=== PATIENT | male | born 1930 | race Two or more races ===

== ENCOUNTER 2017-03-26 22:29 | Inpatient (IN) | payer MEDICARE, OTHER ==
[~2017-03-26] VITALS: Ht 167.6 cm; Wt 61.7 kg
[~2017-03-26 22:29] MED LIST: DOCU-106 PO; FOLI1TAB16 PO; OLME20TA21 PO; QUET100T PO; TAMS0.4C34 PO; TRAM50TA2 PO
--- NOTE | 2017-03-26 22:39 | NUR ---
PT TO ER BED 6. PT BIBRA FROM SNF C/O GLF UNWITNESSED WITH HEMATOMA OVER RIGHT EYE WITH LACERATION. PT PLACED ON LEAD DEVELOPER. VSS/RESP EVEN UNLABORED/NAD NOTED/SKIN WARM AND DRY/DENIES N-V-D/AOX1. AWAITING MD KATZ.
[2017-03-26] MEDS ORDERED: LIDOCAINE 2% JEL UROJET 10 ML MM ONE ×2 (22:54→23:00)
--- NOTE | 2017-03-26 22:55 | NUR ---
20G IV TO R FA X 1 ATTEMPT USING ASEPTIC TECH, BLOOD HANDED OVER TO LAB AT BEDSIDE. IV FLUSHES EASILY WITH NS.
--- NOTE | 2017-03-26 23:00 | NUR ---
15 FR IN AND OUT CATH INSERTED USING MANAGER CORE, 100 ML CLEAR, YELLOW URINE OBTAINED. SPECIMEN SENT HANDED OVER TO LAB AT BEDSIDE.
--- NOTE | 2017-03-26 23:11 | NUR ---
EMT AT BEDSIDE FOR EKG.
[2017-03-26 23:13] LABS: BASOPHILS # (AUTO) 0.1 /CMM (0.0-0.2); BASOPHILS % (AUTO) 0.6 % (0.0-2.0); EOSINOPHILS % (AUTO) 0.4 % (0.0-6.0); HEMATOCRIT 31 % (39-51); HEMOGLOBIN 10.6 g/dL (13.5-17.5); LYMPHOCYTES # (AUTO) 0.6 /CMM (0.8-4.8); LYMPHOCYTES % (AUTO) 5.7 % (20.0-44.0); MEAN CORPUSCULAR HEMOGLOBIN 30 PG (26.0-33.0); MEAN CORPUSCULAR HGB CONC 34 g/dl (31.0-36.0); MEAN CORPUSCULAR VOLUME 89 fL (80-96); MONOCYTES # (AUTO) 0.9 /CMM (0.1-1.30); MONOCYTES % (AUTO) 8.3 % (2.0-12.0); NEUTROPHILS # (AUTO) 9.2 /CMM (1.8-8.9); PLATELET COUNT (AUTO) 133 /CMM (150-450); RDW COEFFICIENT OF VARIATION 15.9 (11.5-15.0); RED BLOOD CELL COUNT(AUTO) 3.49 MIL/uL (4.5-6.0); WHITE BLOOD COUNT (AUTO) 10.8 K/uL (4.3-11.0)
[2017-03-26] MEDS: IV NS 0.9% 500 ML BAG IV ONE (23:16)
[2017-03-26 23:19] LABS: APPEARANCE,URINE SL CLOUDY (CLEAR); BILIRUBIN,URINE NEGATIVE (NEGATIVE); BLOOD, URINE TRACE Ery/uL (NEGATIVE); COLOR,URINE YELLOW (YELLOW); KETONES,URINE 1+ (NEGATIVE); LEUKOCYTE ESTERASE ,URINE 2+ (NEGATIVE); NITRITE, URINE NEGATIVE (NEGATIVE); PROTEIN,URINE 1+ mg/dl (NEGATIVE); UGLUCOSE NEGATIVE (NEGATIVE); UROBILINOGEN,URINE 0.2 EU/dL (0.2)
--- NOTE | 2017-03-26 23:25 | NUR ---
PT TO CT VIA STRETCHER. VSS.
[2017-03-26 23:26] LABS: CARBON DIOXIDE 25 mmol/L (21-32); CHLORIDE 101 mmol/L (98-107); CREATININE 0.9 mg/dL (0.6-1.3); GLUCOSE 144 mg/dL (74-106); INR 1.02 (0.87-1.13); SODIUM SERUM 136 mmol/L (136-145); UREA NITROGEN, BLOOD 20 mg/dL (7-18)
[2017-03-26 23:30] LABS: BACTERIA,URINE Few /HPF (None Seen); SQUAMOUS EPITHELIAL CELL,UR Few /HPF (None Seen); WBC,URINE 51-80 /HPF (0-3)
[2017-03-26 23:37] LABS: ALANINE AMINOTRANSFERASE 7 U/L (12-78); ALBUMIN 3.4 g/dL (3.4-5.0); ALKALINE PHOSPHATASE 73 U/L (46-116); ASPARTATE AMINOTRANSFERASE 18 U/L (15-37); BILIRUBIN,TOTAL 0.6 mg/dL (0.2-1.0); TOTAL PROTEIN, SERUM 8.1 g/dL (6.4-8.2); TROPONIN I < 0.017 ng/mL (0.00-0.056)
--- NOTE | 2017-03-26 23:40 | NUR ---
PT BACK FROM CT.
[2017-03-26] MEDS ORDERED: CEFTRIAXONE 1 G VIAL ONE (23:42)
[2017-03-27] MEDS ORDERED: TAMS0.4C34 PO
[2017-03-27] MEDS ORDERED: CARB-94 PO
[2017-03-27] MEDS ORDERED: PRAV20TA PO
[2017-03-27] MEDS ORDERED: ASPI-1169 PO
[2017-03-27] MEDS ORDERED: MIRT15TA PO
[2017-03-27] MEDS ORDERED: ACET325T53 PO
[2017-03-27] MEDS ORDERED: IV NS 0.9% 1,000 ML BAG IV ONE
[2017-03-27] MEDS ORDERED: NA P133E RC
[2017-03-27] MEDS ORDERED: BISA10SU61 RC
[2017-03-27] MEDS ORDERED: CEFTRIAXONE 1 G in IV D5W 50 ML IV ONE ×2
[2017-03-27] MEDS ORDERED: DIVA500T2 PO
[2017-03-27] MEDS ORDERED: METO-356 PO
[2017-03-27] MEDS ORDERED: LISI10TA5 PO
[2017-03-27] MEDS ORDERED: MAGN2400 PO
--- NOTE | 2017-03-27 00:41 | NUR ---
PT GOING TO TELE 326.
[2017-03-27 00:53] LABS: BILIRUBIN,DIRECT 0.1 mg/dL (0.0-0.2)
--- NOTE | 2017-03-27 01:11 | NUR ---
REPORT CALLED TO LIGIA SALAMANCA FOR BRIA.
[2017-03-27] MEDS: IV NS 0.9% 500 ML BAG IV ONE (01:15)
[2017-03-27 01:30] VITALS: BP 150/82
[2017-03-27] MEDS ORDERED: IV NS 0.9% 1,000 ML BAG IV PRN ×2 (01:30→02:30)
[2017-03-27] MEDS ORDERED: ENOXAPARIN SODIUM 30 MG/0.3 ML DISP.SYRIN SQ SCH (01:30)
--- NOTE | 2017-03-27 01:30 | NUR ---
REMOTE CODERS OPENING NOTES ADMITTED PT AWAKE, ON ROOM AIR, RESPIRATIONS EVEN, UNLABORED, NO SOB NOTED. NO S/SX OF PAIN OR DISCOMFORT NOTED.S/P GROUND LEVEL FALL NOTED WITH LACERATION OF THE RT EYEBROW, NO BLEEDING AT THIS TIME, NOTED WITH RT FOREHEAD HEMATOMA.IV SITE RT FA INTACT ON NS AT 75 ML/HR. CALL LIGHT WITHIN REACH, BED LOCKED IN LOWEST POSITION.KEPT CLEAN AND COMFORTABLE.ATTENDED ALL NEEDS.WILL CONTINUE TO MONITOR ACCORDINGLY.
--- NOTE | 2017-03-27 01:32 | NUR ---
PT TRANSPORTED TO [facility] 326-1 VIA STRETCHER ON KAYAKING INSTRUCTOR WITH RN, ACLS PROTOCOL.
[2017-03-27] MEDS ORDERED: ENOXAPARIN SODIUM 30 MG/0.3 ML DISP.SYRIN ONE (01:56)
[2017-03-27 02:00] VITALS: BP 150/82
[2017-03-27 04:00] VITALS: BP 124/60
--- NOTE | 2017-03-27 06:31 | NUR ---
RAILROAD WATCHMAN NOTES PT IN BED,RESTING COMFORTABLY ON ROOM AIR, RESPIRATIONS EVEN, UNLABORED, NO SOB NOTED. NO S/SX OF PAIN OR DISCOMFORT NOTED. IV SITE INTACT, PATENT,.CALL LIGHT WITHIN REACH. KEPT CLEAN AND COMFORTABLE,ATTENDED ALL NEEDS.WILL CONTINUE TO MONITOR ACCORDINGLY
[2017-03-27 06:40] LABS: BASOPHILS % (AUTO) 0.4 % (0.0-2.0); EOSINOPHILS # (AUTO) 0.1 /CMM (0.0-0.7); EOSINOPHILS % (AUTO) 0.9 % (0.0-6.0); HEMATOCRIT 28 % (39-51); HEMOGLOBIN 9.5 g/dL (13.5-17.5); LYMPHOCYTES # (AUTO) 1.4 /CMM (0.8-4.8); LYMPHOCYTES % (AUTO) 17.7 % (20.0-44.0); MEAN CORPUSCULAR HEMOGLOBIN 31 PG (26.0-33.0); MEAN CORPUSCULAR HGB CONC 35 g/dl (31.0-36.0); MEAN CORPUSCULAR VOLUME 89 fL (80-96); MONOCYTES # (AUTO) 0.7 /CMM (0.1-1.30); MONOCYTES % (AUTO) 8.8 % (2.0-12.0); NEUTROPHILS # (AUTO) 5.6 /CMM (1.8-8.9); NEUTROPHILS % (AUTO) 72.2 % (43.0-81.0); PLATELET COUNT (AUTO) 124 /CMM (150-450); RDW COEFFICIENT OF VARIATION 15.6 (11.5-15.0); RED BLOOD CELL COUNT(AUTO) 3.09 MIL/uL (4.5-6.0); WHITE BLOOD COUNT (AUTO) 7.7 K/uL (4.3-11.0)
--- NOTE | 2017-03-27 07:10 | NUR ---
RN NOTES PT IS LAYING DOWN IN BED SLEEPING, NO SIGNS OF DISTRESS NOTED. PT ON RA, RESPIRATIONS ARE EVEN AND UNLABORED. IV ON RFA INTACT AND RUNNING NS @ 75ML/HR. SAFETY MEASURES ARE IN PLACE, CALL LIGHT IS IN REACH. WILL CONTINUE TO MONITOR.
[2017-03-27 07:17] LABS: CALCIUM, SERUM 8.3 mg/dL (8.5-10.1); CARBON DIOXIDE 24 mmol/L (21-32); CHLORIDE 106 mmol/L (98-107); CREATININE 0.7 mg/dL (0.6-1.3); GLUCOSE 103 mg/dL (74-106); POTASSIUM 4.1 mmol/L (3.5-5.1); SODIUM SERUM 139 mmol/L (136-145); UREA NITROGEN, BLOOD 15 mg/dL (7-18)
[2017-03-27 08:00] VITALS: BP 154/87
[2017-03-27] MEDS ORDERED: NA PHOS,M-B/NA PHOS,DI-BA 1 EA ENEMA RC PRN (08:00)
[2017-03-27] MEDS ORDERED: BISACODYL SUPP (10 MG) 10 MG/SUPP.RECT SUPP.RECT RC PRN (08:00)
[2017-03-27] MEDS ORDERED: ACETAMINOPHEN 325 MG TABLET PO PRN (08:00)
[2017-03-27] MEDS ORDERED: MAGNESIUM HYDROXIDE 30 ML UDC PO PRN (08:30)
[2017-03-27] MEDS: ASPIRIN 81 MG TAB.CHEW PO SCH (08:38)
[2017-03-27] MEDS: CARBIDOPA/LEVODOPA 25/250 MG 1 UDTAB PO SCH ×5 (08:38→21:00)
[2017-03-27] MEDS: TRAMADOL HCL 50 MG TABLET PO SCH (08:38)
[2017-03-27] MEDS: METOPROLOL SUCCINATE 25 MG TAB.SR.24H PO SCH (08:39)
[2017-03-27] MEDS: DIVALPROEX SODIUM 500 MG TABLET.DR PO SCH ×3 (12:23→21:00)
[2017-03-27 16:00] VITALS: BP 140/56
[2017-03-27] MEDS: IV NS 0.9% 1,000 ML IV PRN (16:22)
--- NOTE | 2017-03-27 18:26 | NUR ---
RN NOTES PT IS RESTING IN BED COMFORTABLY. PT ON RA, RESPIRATIONS ARE EVEN AND UNLABORED. IV ON RFA INTACT AND RUNNING NS @ 75ML/HR. ALL MEDS WERE GIVEN ORDERED AND PT NEEDS MET. DRESSING KEPT CLEAN AND DRY ON FOREHEAD. SAFETY MEASURES ARE IN PLACE, CALL LIGHT IS IN REACH. WILL ENDORSE TO SPECIFICATION CONSULTANT RN FOR CONTINUITY OF CARE.
--- NOTE | 2017-03-27 18:28 | NUR ---
RN NOTES PT HAD ONE EPISODE OF EMESIS. NAUSEA HAS SUBSIDED, WILL CONTINUE TO MONITOR.
--- NOTE | 2017-03-27 19:30 | NUR ---
RN OPENING NOTES PT RESTING IN BED. PT CONFUSED. IRISH SPEAKER. NO S/S OF PAIN, DISTRESS, OR SOB AT THIS TIME. PT HAS A RIGHT FOREARM IV #20 RUNNING NS @ 75ML/HR. SAFETY PRECAUTIONS IN PLACE. BED IN LOW, LOCKED POSITION, X3 SIDERAILS UP, AND CALL LIGHT WITHIN REACH. WILL CONTINUE TO MONITOR.
[2017-03-27 20:00] VITALS: BP 106/84
[2017-03-27] MEDS: ENOXAPARIN SODIUM 30 MG/0.3 ML DISP.SYRIN SQ SCH (20:20)
--- NOTE | 2017-03-27 20:45 | NUR ---
RN NOTES PT HAS BECOME AGITATED, PREVIOUS ATTEMPTS TO REDIRECT THE PT HAS BECOME UNSUCCESSFUL. LIGIA PENA ASSISTED WITH CALLING THE OFFICE OF DR VELIZ. DR VELIZ'S AIR DEFENSE CONTROL OFFICER DR MENENDEZ ORDERED PRN ATIVAN 0.5 MG Q4HR. WILL ADMINISTER.
[2017-03-27] MEDS ORDERED: LORAZEPAM INJ 2 MG/ML VIAL IV PRN (21:00)
--- NOTE | 2017-03-27 21:35 | NUR ---
RN NOTES ATIVAN 0.5MG HAS NOT BEEN EFFECTIVE. PER DR MENENDEZ ORDER FOR BILATERAL SOFT WRIST RESTRAINTS. WILL CONTINUE TO MONITOR PT.
[2017-03-27] MEDS: MIRTAZAPINE 15 MG TABLET PO SCH (22:00)
[2017-03-27] MEDS: TAMSULOSIN 0.4 MG CAP.SR.24H PO SCH (22:00)
[2017-03-27] MEDS ORDERED: PRAVASTATIN SODIUM 20 MG TABLET PO SCH (22:00)
[2017-03-27] MEDS: ATORVASTATIN 10 MG TABLET PO SCH (22:00)
[2017-03-27] MEDS: LISINOPRIL (10MG) 10 MG TABLET PO SCH (22:00)
--- NOTE | 2017-03-27 22:55 | NUR ---
RN NOTES PT REFUSED ALL PO MEDICATIONS. THE MEDICATIONS ABLE TO BE CRUSHED WERE ATTEMPTED TO BE GIVEN WITH APPLESAUCE. PT SPIT OUT MEDICATIONS AND APPLESAUCE. MULTIPLE ATTEMPTS MADE AND PT REFUSED EACH TIME. WILL CONTINUE TO MONITOR.
[2017-03-28] MEDS: DIVALPROEX SODIUM 500 MG TABLET.DR PO SCH ×3 (05:00→21:32)
--- NOTE | 2017-03-28 06:33 | NUR ---
RN CLOSING NOTES PT RESTING IN BED. PT CONFUSED OMANI SPEAKER. NO APPARENT S/S OF PAIN, DISTRESS OR SOB NOTED. PT HAS A RFA #20 IV RUNNING NS @75ML/HR, PT TOLERATING WELL. OVER NIGHT THE PATIENT HAS CONTINUED TO BE COMBATIVE AND UNABLE TO TAKE PO MEDICATION. PT HAS BILATERAL SOFT WRIST RESTRAINTS. SAFETY PRECAUTIONS IN PLACE. BED IN LOW LOCKED POSITION, X3SIDE RAILS UP. WILL ENDORSE TO DAY SHIFT NURSE FOR CONTINUITY OF CARE.
--- NOTE | 2017-03-28 07:30 | NUR ---
RN NOTES PT IS LAYING DOWN IN BED, RESTING COMFORTABLY. PT ON RA, RESPIRATIONS ARE EVEN UNLABORED. IV ON RFA INTACT AND RUNNING NS @ 75ML/HR. SOFT WRIST RESTRAINTS ARE ON, NO SKIN IRRITATION NOTED. SAFETY MEASURES ARE IN PLACE, CALL LIGHT IS IN REACH. WILL CONTINUE TO MONITOR.
[2017-03-28 08:00] VITALS: BP 172/80
[2017-03-28] MEDS: CARBIDOPA/LEVODOPA 25/250 MG 1 UDTAB PO SCH ×4 (09:00→21:32)
[2017-03-28] MEDS: ASPIRIN 81 MG TAB.CHEW PO SCH (09:00)
[2017-03-28] MEDS: TRAMADOL HCL 50 MG TABLET PO SCH (09:00)
[2017-03-28] MEDS: IV NS 0.9% 1,000 ML IV PRN (09:17)
[2017-03-28] MEDS: METOPROLOL SUCCINATE 25 MG TAB.SR.24H PO SCH (09:40)
[2017-03-28 12:00] VITALS: BP 152/83
[2017-03-28 16:00] VITALS: BP 123/77
--- NOTE | 2017-03-28 18:38 | NUR ---
RN NOTES PT IS LAYING DOWN IN BED, RESTING COMFORTABLY. PT ON RA, RESPIRATIONS ARE EVEN AND UNLABORED. IV ON RFA INTACT AND RUNNING NS @ 75ML/HR. SOFT WRIST RESTRAINTS IN PLACE, NO IRRITATION TO THE WRISTS NOTED AND NO CHANGES IN ROM. PT NEEDS MET AND SKIN CARE PROVIDED. SAFETY MEASURES ARE IN PLACE, CALL LIGHT IS IN REACH. WILL ENDORSE TO PHLEBOTOMY SUPERVISOR RN FOR CONTINUITY OF CARE.
[2017-03-28 20:00] VITALS: BP 134/81
[2017-03-28 20:37] VITALS: BP 134/81
[2017-03-28] MEDS: CEFTRIAXONE 1 G in IV D5W 50 ML IV SCH (21:24)
[2017-03-28] MEDS: ATORVASTATIN 10 MG TABLET PO SCH (21:32)
[2017-03-28] MEDS: MIRTAZAPINE 15 MG TABLET PO SCH (21:32)
[2017-03-28] MEDS: TAMSULOSIN 0.4 MG CAP.SR.24H PO SCH (21:32)
[2017-03-28] MEDS: LISINOPRIL (10MG) 10 MG TABLET PO SCH (21:32)
[2017-03-28] MEDS: ENOXAPARIN SODIUM 30 MG/0.3 ML DISP.SYRIN SQ SCH (21:33)
--- NOTE | 2017-03-29 04:19 | NUR ---
RN NOTES No significant change in condition. Patient slept comfortably. No respiratory distress noted. Provided good skin care, still noted with slight swelling on periorbital area with purplish discoloration. Restraints being checked every two hours, no disruption of peripheral circulation observed. Due meds given as ordered. All needs attended. Will continue to monitor.
[2017-03-29] MEDS: DIVALPROEX SODIUM 500 MG TABLET.DR PO SCH ×3 (05:00→21:36)
[2017-03-29 08:00] VITALS: BP 150/88
--- NOTE | 2017-03-29 08:00 | NUR ---
RECEIVED PT. THIS AM ALERT AND ORIENTED X1,VERY CONFUSED.
[2017-03-29] MEDS: ASPIRIN 81 MG TAB.CHEW PO SCH (10:27)
[2017-03-29] MEDS: CARBIDOPA/LEVODOPA 25/250 MG 1 UDTAB PO SCH ×2 (10:27→14:18)
[2017-03-29] MEDS: METOPROLOL SUCCINATE 25 MG TAB.SR.24H PO SCH (10:28)
[2017-03-29] MEDS: TRAMADOL HCL 50 MG TABLET PO SCH (10:29)
--- NOTE | 2017-03-29 11:42 | NUR ---
ORAL POTASSIUM SWITCHED TO IV POTASSIUM,PT. WITH SWALLOWING DIFFICULTIES Addendum: 03/29/17 at 1145 by NEDRA CATALAN RN ABOVE NOTE ON INCORRECT PT.
--- NOTE | 2017-03-29 14:30 | NUR ---
IN ADDITION TO ROUTINE ULTRAM GIVEN PO TYLENOL.RELUCTANT TO TAKE MEDS FREQ. NEED UX ARCHITECT
[2017-03-29 16:00] VITALS: BP 127/75
[2017-03-29] MEDS: CARBIDOPA/LEVODOPA 25/100 MG 1 UDTAB PO SCH ×2 (17:51→21:36)
--- NOTE | 2017-03-29 18:00 | NUR ---
NO CHANGE IN STATUS.
[2017-03-29] MEDS ORDERED: DIVALPROEX SODIUM 500 MG TABLET.DR PO SCH (19:00)
--- NOTE | 2017-03-29 19:18 | NUR ---
MS RN NOTES RECEIVED PT IN BED, AWAKE, A/O X 1, CANADIAN SPEAKING, CONFUSED. ATTEMPTING TO REMOVE IV LINE AND HITTING STAFF . NO DISTRESS, NO SOB NOTED. IV SITE ON LFA INTACT AND PATENT, NO S/S OF INFILTRATION NOTED. NO C/O ANY PAIN OR DISCOMFORT AT AT THIS TIME. SAFETY AND ASPIRATION PRECAUTIONS OBSERVED. BED ON LOWEST LEVEL. CALL LIGHT WITHIN REACH. WILL CONT TO MONITOR.
[2017-03-29 20:00] VITALS: BP 127/75
[2017-03-29] MEDS: CEFTRIAXONE 1 G in IV D5W 50 ML IV SCH ×2 (20:57→21:15)
[2017-03-29] MEDS ORDERED: CEFTRIAXONE 1 G VIAL ONE (21:10)
[2017-03-29] MEDS: TAMSULOSIN 0.4 MG CAP.SR.24H PO SCH (21:36)
[2017-03-29] MEDS: LISINOPRIL (10MG) 10 MG TABLET PO SCH (21:36)
[2017-03-29] MEDS: MIRTAZAPINE 15 MG TABLET PO SCH (21:36)
[2017-03-29] MEDS: ATORVASTATIN 10 MG TABLET PO SCH (21:36)
[2017-03-29] MEDS: ENOXAPARIN SODIUM 30 MG/0.3 ML DISP.SYRIN SQ SCH (21:42)
--- NOTE | 2017-03-30 06:50 | NUR ---
MS RN NOTES PT IN BED, AWAKE, A/O X 1, ERITREAN SPEAKING, CONFUSED. WITH ON AND OFF EPISODE OF ATTEMPTING TO REMOVE IV LINE AND HITTING STAFF . NO DISTRESS, NO SOB NOTED. IV SITE ON LFA INTACT AND PATENT, NO S/S OF INFILTRATION NOTED. NO C/O ANY PAIN OR DISCOMFORT AT AT THIS TIME. SAFETY AND ASPIRATION PRECAUTIONS OBSERVED. BED ON LOWEST LEVEL. CALL LIGHT WITHIN REACH. ALL NEEDS ANTICIPATED AND ATTENDED WILL ENDORSE TO NEXT SHIFT FOR BRIA.
--- NOTE | 2017-03-30 07:25 | NUR ---
RN OPENING NOTES RECEIVED PATIENT IN BED SLEEPING, AROUSES EASILY. A/O X1, CONFUSED, MACEDONIAN SPEAKING. NO ACUTE DISTRESS, NO SOB NOTED. NO S/S OF PAIN OR DISCOMFORT. HAS BILATERAL SOFT WRIST RESTRAINT, DUE TO PULLING OF IV LINES PER NIGHT RN. IV SITE INTACT AND PATENT. SAFETY MEASURES IN PLACE. BED IN LOCKED LOW POSITION, SIDERAILS UP. CALL LIGHT IN REACH. WILL CONTINUE TO MONITOR ACCORDINGLY.
[2017-03-30 08:00] VITALS: BP 164/91
[2017-03-30] MEDS: ASPIRIN 81 MG TAB.CHEW PO SCH (08:54)
[2017-03-30] MEDS: TRAMADOL HCL 50 MG TABLET PO SCH (08:54)
[2017-03-30] MEDS: CARBIDOPA/LEVODOPA 25/100 MG 1 UDTAB PO SCH ×4 (08:55→21:00)
[2017-03-30] MEDS: DIVALPROEX SODIUM 500 MG TABLET.DR PO SCH ×2 (08:55→21:00)
[2017-03-30] MEDS: METOPROLOL SUCCINATE 25 MG TAB.SR.24H PO SCH (08:56)
[2017-03-30] MEDS: CHOLECALCIFEROL 1,000 UNIT TABLET (VIT D3) PO SCH (09:04)
[2017-03-30 09:30] VITALS: BP 128/79
[2017-03-30 16:00] VITALS: BP 150/85
--- NOTE | 2017-03-30 19:25 | NUR ---
RN CLOSING NOTES PATIENT IN BED RESTING, CALM, NO ACUTE DISTRESS, NO SOB NOTED. NO S/S OF PAIN OR DISCOMFORT. IV SITE PULLED OUT BY PATIENT, APPLIED PRESSURE, NO BLEEDING NO COMPLICATIONS NOTED. ALL NEEDS ATTENDED AND PROVIDED. TURNED PATIENT EVERY 2 HOURS NEEDED. RESTRAINTS OFF NOW, PATIENT IS CALM. BED IN LOW POSITION, LOCKED, SIDERAILS UP, CALL LIGHT IN REACH. ENDORSED TO NIGHT RN FOR BRIA.
--- NOTE | 2017-03-30 19:30 | NUR ---
MS/RN OPENING NOTES PT RECEIVED RESTING COMFORTABLY IN BED. EASILY AROUSABLE TO NAME. ON ROOM AIR, BREATHING EVEN AND UNLABORED. NO IV ACCESS AT THIS TIME DUE TO PT REMOVING LINES. PT CALM AND COOPERATIVE AT THIS TIME. BILATERAL SOFT WRIST RESTRAINTS NOT ON AT THIS TIME. IN NO APPARENT DISTRESS OR S/S OF PAIN. BED IN LOW/LOCKED POSITION WITH CALL LIGHT IN REACH. SIDE RAILS UPX3 AND BED ALARM ON FOR SAFETY. WILL CONTINUE TO MONITOR
[2017-03-30 20:00] VITALS: BP 138/72
--- NOTE | 2017-03-30 20:10 | NUR ---
MS/RN NOTES IV INSERTED TO LEFT HAND #22. SLEEVE APPLIED. PT REMAINS CALM AT THIS TIME.
[2017-03-30] MEDS: CEFTRIAXONE 1 G in IV D5W 50 ML IV SCH (21:57)
[2017-03-30] MEDS: TAMSULOSIN 0.4 MG CAP.SR.24H PO SCH (22:00)
[2017-03-30] MEDS: LISINOPRIL (10MG) 10 MG TABLET PO SCH (22:00)
[2017-03-30] MEDS: ATORVASTATIN 10 MG TABLET PO SCH (22:00)
[2017-03-30] MEDS: MIRTAZAPINE 15 MG TABLET PO SCH (22:00)
[2017-03-30] MEDS: ENOXAPARIN SODIUM 30 MG/0.3 ML DISP.SYRIN SQ SCH (22:03)
--- NOTE | 2017-03-30 22:19 | NUR ---
MS/RN NOTES PM MEDICATIONS SCANNED AND OPENED. PT REFUSING MEDICATION. EDUCATED X3. STILL REFUSING. ADVISED THAT I WOULD COME BACK IN 10 MINS AND PT VERBALIZED UNDERSTANDING. WHEN I CAME BACK TO ADMINISTER MEDICATION, PT STILL REFUSING. EDUCATED AGAIN, PT WANTED TO GO TO SLEEP.
--- NOTE | 2017-03-31 00:04 | NUR ---
MS/RN NOTES PT PULLED OUT IV. BECOMING AGITATED AND COMBATIVE. PLACED BACK ON BILATERAL SOFT WRIST RESTRAINTS. REORIENTED PRN. WILL MONITOR
--- NOTE | 2017-03-31 07:30 | NUR ---
MS/RN CLOSING NOTES PT ASLEEP, EASILY AROUSABLE TO NAME. A/OX1, CONFUSED. REMAINS ON ROOM AIR, BREATHING EVEN AND UNLABORED. NO S/S OF SOB OR PAIN. PT PULLED OUT IV AND BECOMING AGITATED DURING SHIFT. PLACED BACK ON BILATERAL SOFT WRIST RESTRAINTS AROUND 0000. PT IS CALM AND QUIET AT THIS TIME. IV TO RIGHT HAND #22 INSERTED. BED IN LOW/LOCKED POSITION WITH CALL LIGHT IN REACH. SIDE RAILS UPX3 AND BED ALARM ON FOR SAFETY. ENDORSED TO DAY SHIFT RN BRIA AND FOLLOW UP WITH MD TO CONTINUE ORDER FOR BILATERAL SOFT WRIST RESTRAINTS
--- NOTE | 2017-03-31 07:31 | NUR ---
MS/RN OPENING NOTES PT RECEIVED AWAKE IN BED IN NO ACUTE SIGNS OF DISTRESS. A/O X1, MACEDONIAN SPEAKING, QUIET AND CALM AT THIS TIME. ON ROOM AIR, BREATHING EVEN AND UNLABORED. NO IV ACCESS AT THIS TIME, WILL RE-INSERT ONE AND THEN WILL PUT BILATERAL SOFT WRIST RESTRAINTS TO PREVENT PT PULLING OUT HER IV LINE. BED IN LOW/LOCKED POSITION WITH CALL LIGHT IN REACH. SIDE RAILS UPX3 AND BED ALARM ON FOR SAFETY. WILL CONTINUE TO MONITOR PT ACCORDINGLY.
[2017-03-31 08:00] VITALS: BP 144/87
[2017-03-31] MEDS: TRAMADOL HCL 50 MG TABLET PO SCH (08:51)
[2017-03-31] MEDS: ASPIRIN 81 MG TAB.CHEW PO SCH (08:51)
[2017-03-31] MEDS: DIVALPROEX SODIUM 500 MG TABLET.DR PO SCH ×2 (08:51→21:40)
[2017-03-31] MEDS: CARBIDOPA/LEVODOPA 25/100 MG 1 UDTAB PO SCH ×4 (08:52→21:39)
[2017-03-31] MEDS: CHOLECALCIFEROL 1,000 UNIT TABLET (VIT D3) PO SCH (08:52)
[2017-03-31] MEDS: METOPROLOL SUCCINATE 25 MG TAB.SR.24H PO SCH (08:52)
[2017-03-31 16:00] VITALS: BP 115/66
--- NOTE | 2017-03-31 18:35 | NUR ---
MS/RN CLOSING NOTES PT ASLEEP AT MODERATE HIGH BACKREST IN BED AT THIS TIME, EASILY AROUSABLE. A/O X1, SOUTH AFRICAN SPEAKING, QUIET AND CALMED ALL THROUGHOUT THE DAY. RESTRAINTS WAS REMOVED AND NOT NEEDED AT THIS TIME. ON ROOM AIR, BREATHING EVEN AND UNLABORED. IV ACCESS ON RIGHT HAND G#22 INTACT AND PATENT, FLUSHES WELL. HOB ELEVATED. KEPT BED IN LOW/LOCKED POSITION WITH CALL LIGHT IN REACH. SIDE RAILS UPX3 AND BED ALARM ON FOR SAFETY. PT TURNED AND REPOSITIONED Q 2HRS AND PRN. ALL NEEDS AND CARE PROVIDED WELL. WILL ENDORSED TO ORACLE APPLICATION CONSULTANT NURSE FOR BRIA. .
--- NOTE | 2017-03-31 19:15 | NUR ---
MS/RN OPENING NOTES PT RECEIVED ASLEEP, EASILY AROUSABLE TO NAME. A/OX1. ON ROOM AIR, BREATHING EVEN AND UNLABORED. NO S/S OF SOB OR PAIN. IN NO APPARENT DISTRESS. IV TO RIGHT HAND PATENT AND INTACT. PT CURRENTLY OFF SOFT WRIST RESTRAINTS. PT IS CALM AND COOPERATIVE AT THIS TIME. BED IN LOW/LOCKED POSITION WITH CALL LIGHT IN REACH. SIDE RAILS UPX3 WITH BED ALARM ON FOR SAFETY. WILL CONTINUE TO MONITOR
[2017-03-31 20:00] VITALS: BP 145/81
[2017-03-31] MEDS: LISINOPRIL (10MG) 10 MG TABLET PO SCH (21:39)
[2017-03-31] MEDS: CEFTRIAXONE 1 G in IV D5W 50 ML IV SCH (21:39)
[2017-03-31] MEDS: MIRTAZAPINE 15 MG TABLET PO SCH (21:40)
[2017-03-31] MEDS: TAMSULOSIN 0.4 MG CAP.SR.24H PO SCH (21:40)
[2017-03-31] MEDS: ATORVASTATIN 10 MG TABLET PO SCH (21:40)
[2017-03-31] MEDS: ENOXAPARIN SODIUM 30 MG/0.3 ML DISP.SYRIN SQ SCH (21:41)
--- NOTE | 2017-04-01 06:47 | NUR ---
MS/RN CLOSING NOTES PT ASLEEP, VERBALLY RESPONSIVE TO NAME. REMAINS ON ROOM AIR, BREATHING EVEN AND UNLABORED. NO S/S OF SOB OR PAIN. IN NO APPARENT DISTRESS. PT REMAINED CALM AND COOPERATIVE DURING ENTIRE SHIFT. IV TO RIGHT HAND REMAINS PATENT AND INTACT. NO SIGNIFICANT CHANGES OVERNIGHT. KEPT PT COMFORTABLE DURING SHIFT. ALL NEEDS MET. BED IN LOW/LOCKED POSITION WITH CALL LIGHT IN REACH. SIDE RAILS UPX3 AND BED ALARM ON FOR SAFETY. TURNED/REPOSITIONED Q2H AND HEELS OFFLOADED. WILL ENDORSE TO DAY SHIFT RN BRIA.
--- NOTE | 2017-04-01 07:39 | NUR ---
RECEIVED BEDSIDE SBAR REPORT ON THE PATIENT. PATIENT IS A/O X1 (SELF ONLY), CONFUSED, FORGETFUL, BELGIAN SPEAKING WITH LITTLE UNDERSTANDING OF [place]. DENIES PAIN/DISCOMFORT AT THIS TIME. CHEST IS RISING EQUALLY BILATERALLY. SPO2 97 % ON RA. PATIENT IS IN BED. BED IS LOCKED IN LOWEST POSITION, SIDE RAILS UP X3, BED ALARM IS ON. CALL LIGHT WITHIN REACH. EDUCATED TO USE THE CALL LIGHT TO CALL FOR ASSISTANCE. ALL NEEDS ARE MET. WILL CONTINUE TO ASSESS/MONITOR THROUGHOUT THE SHIFT.
[2017-04-01 08:00] VITALS: BP 110/60
[2017-04-01] MEDS: BOOST PLUS FOOD-VANILLA 237 ML BOX PO SCH ×2 (08:41→17:05)
[2017-04-01] MEDS: DIVALPROEX SODIUM 500 MG TABLET.DR PO SCH ×2 (09:00→21:01)
[2017-04-01] MEDS: CARBIDOPA/LEVODOPA 25/100 MG 1 UDTAB PO SCH ×4 (10:29→21:01)
[2017-04-01] MEDS: METOPROLOL SUCCINATE 25 MG TAB.SR.24H PO SCH (10:29)
[2017-04-01] MEDS: ASPIRIN 81 MG TAB.CHEW PO SCH (10:29)
[2017-04-01] MEDS: CHOLECALCIFEROL 1,000 UNIT TABLET (VIT D3) PO SCH (10:29)
[2017-04-01] MEDS: TRAMADOL HCL 50 MG TABLET PO SCH (10:30)
--- NOTE | 2017-04-01 10:31 | NUR ---
UNABLE TO ADMINISTER DEPAKOTE. DEPAKOTE NOT TO BE CRUSHED. PATIENT UNABLE TO SWALLOW A WHOLE PILL. WILL CALL THE PHARMACY TO MAKE CHANGES.
--- NOTE | 2017-04-01 10:37 | NUR ---
WAITING FOR DR. VELIZ TO CHANGE THE DEPAKOTE TO LIQUID FORM. WILL ADMINISTER ONCE ORDER RECEIVED.
[2017-04-01 16:00] VITALS: BP 112/62
--- NOTE | 2017-04-01 18:36 | NUR ---
MS RN CLOSING NOTE PATIENT IS A/O X1 (SELF ONLY), CONFUSED, FORGETFUL, UPPER [place]BI[place] SPEAKING WITH LITTLE UNDERSTANDING OF MOZAMBICAN. DENIES PAIN/DISCOMFORT AT THIS TIME. CHEST IS RISING EQUALLY BILATERALLY. SPO2 98 % ON RA. PATIENT IS IN BED. BED IS LOCKED IN LOWEST POSITION, SIDE RAILS UP X3, BED ALARM IS ON. CALL LIGHT WITHIN REACH. EDUCATED TO USE THE CALL LIGHT TO CALL FOR ASSISTANCE. ALL NEEDS ARE MET. HOB KEPT ELEVATED AT ALL TIMED. ALL DUE MEDICATIONS ADMINISTERED WITH PATIENT TOLERATING WELL. PATIENT REPOSITIONED FOR COMFORT AND FUNCTIONAL ALIGNMENT OF THE LIMBS EVERY 2 HRS. WILL ENDORSE TO THE EXHIBIT DISPLAY REPRESENTATIVE NURSE FOR BRIA.
--- NOTE | 2017-04-01 19:16 | NUR ---
BEDSIDE SBAR REPORT GIVEN TO [facility] FOR BRIA.
[2017-04-01 20:00] VITALS: BP 113/63
[2017-04-01] MEDS: CEFTRIAXONE 1 G in IV D5W 50 ML IV SCH (20:46)
[2017-04-01] MEDS: ENOXAPARIN SODIUM 30 MG/0.3 ML DISP.SYRIN SQ SCH (21:00)
--- NOTE | 2017-04-01 21:00 | NUR ---
MS RN NOTES DUE PO MEDS ADMINISTERED WITH APPLE SAUCE,TAKEN WELL.
--- NOTE | 2017-04-01 21:32 | NUR ---
MS RN NOTES RECEIVED ON BED WITH HOB ELEVATED,SLEEPING EASILY AROUSABLE TO TACTILES STIMULI,BREATHING REGULAR,NOT IN ANY FORM OF DISTRESS.SALINE LOCK RIGHT HAND INTACT AND PATENT.WITH RIGHT EYEBROW LACERATION,PERIORBITAL HEMATOMA S/O FALL AT SNF.ASPIRATION PRECAUTION OBSERVED.BED ALARM TRIGGERED.REPOSITION Q 2 HOURS PER PROTOCOL.CALL LIGHT IN REACH,NEEDS ANTICIPATED.
--- NOTE | 2017-04-01 22:00 | NUR ---
MS RN NOTES PM CARE RENDERED BY LUIS E MARTINEZ.REPOSITION PER PROTOCOL.
[2017-04-01] MEDS: MIRTAZAPINE 15 MG TABLET PO SCH (22:07)
[2017-04-01] MEDS: LISINOPRIL (10MG) 10 MG TABLET PO SCH (22:07)
[2017-04-01] MEDS: ATORVASTATIN 10 MG TABLET PO SCH (22:07)
[2017-04-01] MEDS: TAMSULOSIN 0.4 MG CAP.SR.24H PO SCH (22:07)
--- NOTE | 2017-04-02 06:24 | NUR ---
MS RN NOTES NO SIGNIFICANT CHANGE IN STATUS. CALM AND QUIET ON BED,REPOSITION PER PROTOCOL,ON NO ACUTE DISTRESS.WILL ENDORSE TO DAY NURSE FOR BRIA.
--- NOTE | 2017-04-02 07:39 | NUR ---
MS RN OPENING NOTE RECEIVED BEDSIDE SBAR REPORT ON THE PATIENT. PATIENT IS A/O X1 (SELF ONLY), CONFUSED, FORGETFUL, [place] SPEAKING WITH LITTLE UNDERSTANDING OF SOUTH SUDANESE. PATIENT IS ASLEEP, EASILY AWAKEN. DENIES PAIN/DISCOMFORT AT THIS TIME. CHEST IS RISING EQUALLY BILATERALLY. SPO2 96 % ON RA. PATIENT IS IN BED. BED IS LOCKED IN LOWEST POSITION, SIDE RAILS UP X3, BED ALARM IS ON. CALL LIGHT WITHIN REACH. EDUCATED TO USE THE CALL LIGHT TO CALL FOR ASSISTANCE. ALL NEEDS ARE MET. WILL CONTINUE TO ASSESS/MONITOR THROUGHOUT THE SHIFT.
[2017-04-02 08:00] VITALS: BP 133/70
[2017-04-02] MEDS: BOOST PLUS FOOD-VANILLA 237 ML BOX PO SCH ×2 (08:56→17:41)
[2017-04-02] MEDS: CHOLECALCIFEROL 1,000 UNIT TABLET (VIT D3) PO SCH (09:05)
[2017-04-02] MEDS: TRAMADOL HCL 50 MG TABLET PO SCH (09:06)
[2017-04-02] MEDS: METOPROLOL SUCCINATE 25 MG TAB.SR.24H PO SCH (09:06)
[2017-04-02] MEDS: DIVALPROEX SODIUM 500 MG TABLET.DR PO SCH ×2 (09:06→21:00)
[2017-04-02] MEDS: ASPIRIN 81 MG TAB.CHEW PO SCH (09:11)
[2017-04-02] MEDS: CARBIDOPA/LEVODOPA 25/100 MG 1 UDTAB PO SCH ×4 (09:11→21:00)
--- NOTE | 2017-04-02 09:30 | NUR ---
ASPIRIN FELL ON THE GROUND WHILE OPENING. SECOND ASPIRIN IS DESPENSED FROM OMNICELL. ADMINISTERED ONLY ONCE ORDERED.
--- NOTE | 2017-04-02 13:27 | NUR ---
Some medications not administered by previous shifts. Documented non-administered to rid of the non-administered reminders.
[2017-04-02 16:00] VITALS: BP 109/64
--- NOTE | 2017-04-02 18:45 | NUR ---
MS RN NOTE PATIENT IS A/O X1 (SELF ONLY), CONFUSED, FORGETFUL, B[place]WA[place] SPEAKING WITH LITTLE UNDERSTANDING OF SOUTH KOREAN. PATIENT IS AWAKE, RESPONSIVE TO NAME AND TOUCH. DENIES PAIN/DISCOMFORT AT THIS TIME. CHEST IS RISING EQUALLY BILATERALLY. SPO2 96 % ON RA. PATIENT IS IN BED. BED IS LOCKED IN LOWEST POSITION, SIDE RAILS UP X3, BED ALARM IS ON. CALL LIGHT WITHIN REACH. EDUCATED TO USE THE CALL LIGHT TO CALL FOR ASSISTANCE. ALL NEEDS ARE MET. ALL DUE MEDICATIONS ADMINISTERED WITH PATIENT TOLERATING WELL. ROUNDED EVERY HOURLY AND REPOSITIONED EVERY TWO HOURS TO MAINTAIN FUNCTIONAL ALIGNMENT OF THE LIMBS. WILL ENDORSE TO THE AOC PLANS INTELLIGENCE OFFICER CHIEF NURSE FOR CONTINUATION OF CARE.
--- NOTE | 2017-04-02 19:40 | NUR ---
MS RN INITIAL NOTES PT IS IN BED, A/O TO SELF ONLY CONFUSED AND ARABIC SPEAKING. BREATHING EVENLY AND UNLABORED ON RA. NO SIGNS OF SOB OR DISTRESS. DENIES PAIN AT THIS TIME. SITTER IS AT BEDSIDE. BED IS IN LOW AND LOCKED POSITION, CALL LIGHT WITHIN REACH. WILL CONTINUE TO MONITOR PT.
[2017-04-02 20:00] VITALS: BP 136/71
[2017-04-02] MEDS: ENOXAPARIN SODIUM 30 MG/0.3 ML DISP.SYRIN SQ SCH (21:00)
[2017-04-02] MEDS: CEFTRIAXONE 1 G in IV D5W 50 ML IV SCH (21:19)
[2017-04-02] MEDS: LISINOPRIL (10MG) 10 MG TABLET PO SCH (22:00)
[2017-04-02] MEDS: TAMSULOSIN 0.4 MG CAP.SR.24H PO SCH (22:00)
[2017-04-02] MEDS: MIRTAZAPINE 15 MG TABLET PO SCH (22:00)
[2017-04-02] MEDS: ATORVASTATIN 10 MG TABLET PO SCH (22:00)
--- NOTE | 2017-04-03 07:00 | NUR ---
MS RN OPENING NOTES RECEIVED PATIENT IN BED AWAKE, VERBALLY RESPONSIVE , ALERT ONLY TO SELF, CONFUSED. NO SOB NOTED. NO ACUTE DISTRESS NOTED. BREATHING UNLABORED. IV ACCESS PATENT AND INTACT.HOB ELEVATED. SAFETY MEASURES IN PLACE. CALL LIGHT WITHIN REACH. WILL CONTINUE TO MONITOR ACCORDINGLY.
--- NOTE | 2017-04-03 07:25 | NUR ---
MS RN CLOSING NOTES PT IS IN BED AWAKE. BREATHING EVENLY AND UNLABORED ON RA, NO SIGNS OF SOB OR DISTRESS. NEW IV ACCESS WAS PLACED ON RIGHT HAND #20. PLAN TO D/C PT TODAY. BED IS IN LOW AND LOCKED POSITION, SITTER AT BEDSIDE. WILL ENDORSE TO DAYSHIFT
[2017-04-03 08:00] VITALS: BP 158/83
[2017-04-03] MEDS: BOOST PLUS FOOD-VANILLA 237 ML BOX PO SCH ×2 (08:10→17:18)
[2017-04-03] MEDS: ASPIRIN 81 MG TAB.CHEW PO SCH (08:11)
[2017-04-03] MEDS: DIVALPROEX SODIUM 500 MG TABLET.DR PO SCH (08:11)
[2017-04-03] MEDS: CARBIDOPA/LEVODOPA 25/100 MG 1 UDTAB PO SCH ×4 (08:11→22:00)
[2017-04-03] MEDS: CHOLECALCIFEROL 1,000 UNIT TABLET (VIT D3) PO SCH (08:11)
[2017-04-03] MEDS: TRAMADOL HCL 50 MG TABLET PO SCH (08:12)
[2017-04-03] MEDS: METOPROLOL SUCCINATE 25 MG TAB.SR.24H PO SCH (08:13)
[2017-04-03 16:00] VITALS: BP 135/75
--- NOTE | 2017-04-03 18:00 | NUR ---
MS RN CLOSING NOTES PATIENT IN BED AWAKE, ALERT ONLY TO SELF, CONFUSED. VERBALLY RESPONSIVE. NO SOB NOTED. NO ACUTE DISTRESS NOTED. BREATHING UNLABORED. HOB ELAVATED .IV ACCESS PATENT AND INTACT. SAFETY MEASURES IN PLACE. NEEDS ATTENDED AND ANTICIPATED. DUE MEDICATIONS GIVEN, NO ASE NOTED. CALL LIGHT WITHIN REACH. WILL CONTINUE TO MONITOR ACCORDINGLY , WILL ENDORSE TO UNDERWRITING ACCOUNT REPRESENTATIVE FOR CONTINUITY OF CARE.
--- NOTE | 2017-04-03 19:10 | NUR ---
RN OPEN NOTES RECEIVED PATIENT AWAKE IN BED. A/O X1. NO SIGNS OF DISTRESS OR DISCOMFORT. BREATHING EVEN AND UNLABORED. IV ACCESS IN R HAND, PATENT AND INTACT, NO SIGNS OF REDNESS OR INFILTRATION. BED IN LOW LOCKED POSITION WITH SIDE RAILS X3. CALL LIGHT WITHIN REACH. WILL CONTINUE TO MONITOR. Addendum: 04/03/17 at 1944 by IDANIA BENITO RN SITTER AT BEDSIDE. ON BILATERAL SOFT WRIST RESTRAINTS WITH NO SKIN OR CIRCULATION ISSUES NOTED.
[2017-04-03 20:00] VITALS: BP 140/76
[2017-04-03] MEDS: TAMSULOSIN 0.4 MG CAP.SR.24H PO SCH (22:00)
[2017-04-03] MEDS: ATORVASTATIN 10 MG TABLET PO SCH (22:00)
[2017-04-03] MEDS: MIRTAZAPINE 15 MG TABLET PO SCH (22:00)
[2017-04-03] MEDS: CEFTRIAXONE 1 G in IV D5W 50 ML IV SCH (22:00)
[2017-04-03] MEDS: LISINOPRIL (10MG) 10 MG TABLET PO SCH (22:01)
[2017-04-03] MEDS: ENOXAPARIN SODIUM 30 MG/0.3 ML DISP.SYRIN SQ SCH (22:03)
[2017-04-03] MEDS ORDERED: VALPROIC ACID 250 MG/5 ML UDC ONE (22:57)
[2017-04-03] MEDS: VALPROIC ACID 250 MG/5 ML UDC PO SCH (23:07)
--- NOTE | 2017-04-04 07:26 | NUR ---
RN CLOSING NOTES PATIENT RESTING IN BED, EASILY AROUSABLE. A/O X1. NO SIGNS OF DISTRESS OR DISCOMFORT. BREATHING EVEN AND UNLABORED. IV ACCESS IN R HAND, PATENT AND INTACT, NO SIGNS OF REDNESS OR INFILTRATION. ALL NEEDS MET. NO SIGNIFICANT CHANGES THROUGH THE NIGHT. BED IN LOW LOCKED POSITION WITH SIDE RAILS X3. CALL LIGHT WITHIN REACH. ENDORSED TO AM SHIFT FOR BRIA.
[2017-04-04 08:00] VITALS: BP 120/72
--- NOTE | 2017-04-04 08:00 | NUR ---
MED SURG 3 RN AM NOTES RECEIVED PATIENT IN BED, ALERT AND ORIENTED X 1 WITH 1:1 SITTER AT BEDSIDE. PATIENT BREATHING COMFORTABLY ON ROOM AIR. VITALS STABLE, NO SIGNS OF DISTRESS OR PAIN. PATIENT RESTING IN BED. BED IN LOW POSITION WITH TWO SIDE RAILS UP, BED ALARM ON AND CALL LIGHT WITHIN REACH.
[2017-04-04] MEDS: BOOST PLUS FOOD-VANILLA 237 ML BOX PO SCH ×2 (08:51→17:32)
[2017-04-04] MEDS: VALPROIC ACID 250 MG/5 ML UDC PO SCH (08:51)
[2017-04-04] MEDS: ASPIRIN 81 MG TAB.CHEW PO SCH (08:52)
[2017-04-04] MEDS: CARBIDOPA/LEVODOPA 25/100 MG 1 UDTAB PO SCH ×3 (08:52→17:30)
[2017-04-04] MEDS: CHOLECALCIFEROL 1,000 UNIT TABLET (VIT D3) PO SCH (08:52)
[2017-04-04] MEDS: TRAMADOL HCL 50 MG TABLET PO SCH (08:52)
[2017-04-04] MEDS: METOPROLOL SUCCINATE 25 MG TAB.SR.24H PO SCH (08:53)
[2017-04-04 16:00] VITALS: BP 103/51
--- NOTE | 2017-04-04 18:00 | NUR ---
DISCHARGE INSTRUCTIONS PATIENT ALERT AND ORIENTED X 1. VITALS STABLE, NO SIGNS OR SYMPTOMS OF DISTRESS. RESTING COMFORTABLY IN BED. SITTER AT BEDSIDE. SPOKE TO DAUGHTER NIHARIKA TO NOTIFY OF PATIENT'S DISCHARGE AND TRANSFER TO [facility], SPOKE TO NAOMI CHARGE NURSE AT [facility] TO GIVE REPORT FOR PATIENT. 2OG IV HEP LOCK REMOVED ON RIGHT HAND, NO BLEEDING, NO SWELLING, NO SIGNS OR SYMPTOMS OF INFECTION. BED IN LOW POSITION WITH TWO SIDE RAILS UP, CALL LIGHT WITHIN REACH. AWAITING TRANSPORT.
--- NOTE | 2017-04-04 19:30 | NUR ---
RN OPENING NOTES PATIENT IS IN BED, ALERT AND ORIENTED X 1. VS STABLE. NO SOB NOTED. RESPIRATIONS EVEN AND UNLABORED. SITTER PRESENT AT BEDSIDE. NO SIGNS OR SYMPTOMS OF DISTRESS. SITTER AT BEDSIDE. PATIENT IS WAITING TO BE DISCHARGED TO [facility]. ALL PAPERS SIGNED AND DISCHARGE INSTRUCTIONS PROVIDED. 2OG IV HEP LOCK REMOVED ON RIGHT HAND, NO BLEEDING OR REDNESS NOTED. BED IN LOW AND LOCKED POSITION, SIDE RAILSX2. CALL LIGHT WITHIN REACH. WILL CONTINUE TO MONITOR.
--- NOTE | 2017-04-04 20:08 | NUR ---
PLASTIC BOAT PATCHER NOTES PATIENT IS DISCHARGED TO [facility] IN STABLE CONDITION. ALERT AND ORIENTED X 1. VS STABLE. NO SOB NOTED. RESPIRATIONS EVEN AND UNLABORED. NO SIGNS OR SYMPTOMS OF DISTRESS OR PAIN NOTED. ALL NEEDS ARE MET, SKIN CLEAN AND DRY. IV REMOVED, DISCHARGED INSTRUCTIONS PROVIDED.
== END 2017-04-04 20:00 | DRG 871 ==
LOC: ER 22:30 → TELE 03-27 00:37 → MED 03-27 11:46
PROVIDERS: ADMIT Internal Medicine; ATTEND Internal Medicine
DX: A41.9 Sepsis, unspecified organism (principal); G93.40 Encephalopathy, unspecified; R64 Cachexia; G20 Parkinson's disease; N13.8 Other obstructive and reflux uropathy; G93.89 Other specified disorders of brain; D63.8 Anemia in other chronic diseases classified elsewhere; S00.03XA Contusion of scalp, initial encounter; N39.0 Urinary tract infection, site not specified; E55.9 Vitamin D deficiency, unspecified; W05.0XXA Fall from non-moving wheelchair, initial encounter; G30.9 Alzheimer's disease, unspecified; F02.80 Dementia in other diseases classified elsewhere, unspecified severity, without behavioral disturbance, psychotic disturbance, mood disturbance, and anxiety; S00.83XA Contusion of other part of head, initial encounter; I25.10 Atherosclerotic heart disease of native coronary artery without angina pectoris; Y93.9 Activity, unspecified; Z86.73 Personal history of transient ischemic attack (TIA), and cerebral infarction without residual deficits; Z87.891 Personal history of nicotine dependence; N40.1 Benign prostatic hyperplasia with lower urinary tract symptoms; Z68.22 Body mass index [BMI] 22.0-22.9, adult; Y92.129 Unspecified place in nursing home as the place of occurrence of the external cause; I95.1 Orthostatic hypotension; S00.11XA Contusion of right eyelid and periocular area, initial encounter; I10 Essential (primary) hypertension; Z79.82 Long term (current) use of aspirin; B96.89 Other specified bacterial agents as the cause of diseases classified elsewhere
CPT/HCPCS: 36415; 70450-TC; 71045-TC; 72125-TC; 72170-TC; 80048-TC; 80053-TC; 80164-TC; 81000-TC; 82248-TC; 83605-TC; 84484-TC; 85025-TC; 85730-TC; 87040-TC; 87081-TC; 87086-TC; 95819-TC; A4606; J0696; J1650; J2060; J3490; J7030; J7040; J7050; J7060; Z7610